=== PATIENT | female | born 1955 | race African-American/Black ===

== ENCOUNTER 2018-01-04 11:26 | Observation (INO) ==
[2018-01-04] MEDS ORDERED: Aspirin 325 MG Tablet PO ONE (11:58)
--- NOTE | 2018-01-04 12:32 | ED ---
HPI General Chief Complaint: Chest Pain Stated Complaint: left hand/arm pain,slight chest pressure Time Seen by Provider: 01/04/18 11:57 Source: patient Mode of arrival: ambulatory Limitations: no limitations History of Present Illness HPI narrative: Patient is a 62-year-old female that presents for the evaluation of chest heaviness and an abnormal sensation in the left arm that started yesterday. The patient states that the symptoms have fluctuated and are not constant. She experienced the symptoms for the first time yesterday and states that she felt better but the symptoms returned in the evening and were present again this morning so she decided she wanted further evaluation of the symptoms. The patient reports that she feels a heaviness in her chest that she states is not painful. She states that her left arm feels numb and she has experienced a sharp pain in her left hand. The patient states that she has a history of carpal tunnel in this arm but states that she is unsure if her current symptoms are similar to the carpal tunnel symptoms she experienced in the past. The patient also has a history of atrial fibrillation. Upon review of symptoms the patient denies fever, chills, palpitations, nausea, or vomiting. She denies any recent history of trauma to the neck or arm. She reports some shortness of breath upon exertion and bilateral lower extremity edema that she states is normal for her. Related Data Home Medications Medication Instructions Recorded Confirmed aspirin 81 mg PO DAILY 01/04/18 01/04/18 diltiazem HCl [Cartia XT] 180 mg PO DAILY 01/04/18 01/04/18 dronedarone [Multaq] 400 mg PO BID 01/04/18 01/04/18 rosuvastatin 10 mg PO DAILY 01/04/18 01/04/18 Allergies Allergy/AdvReac Type Severity Reaction Status Date / Time codeine Allergy Intermediate Nausea/Vomi Verified 01/04/18 16:26 ting banana Allergy Mild NAUSEA/BURING Verified 01/04/18 16:26 EARS Beef Containing Products Allergy Mild NAUSEA Verified 01/04/18 16:26 lactose Allergy Mild NAUSEA Verified 01/04/18 16:26 orange Allergy Mild NAUSEA Verified 01/04/18 16:26 Sulfa (Sulfonamide Allergy Mild RASH,HIVES Verified 01/04/18 16:26 Antibiotics) penicillin G Allergy Unknown Rash Verified 01/04/18 16:26 MELON AdvReac Severe NAUSEA Uncoded 02/22/10 09:15 Review of Systems ROS: all other systems reviewed are negative PMFSH History History Provided By: Patient Medical History Medical History Afib (Acute) Medial meniscus tear (Acute) Surgical History Surgical History Hx of appendectomy (Acute) Hx of tonsillectomy (Acute) Social History Social History Substance History: No History of Abuse Second Hand Smoke Exposure: No Smoking Status: Never smoker How Often Do You Have a Drink Containing Alcohol: Never Recent Travel in [facility] within the Last 8 Weeks: No Recent Out of Country Travel within the Last 8 Weeks: No Exam Narrative Exam Narrative: GENERAL: Well apeparing SKIN: Focused skin assessment warm/dry. HEAD: Atraumatic. Normocephalic. EYES: Pupils equal and round. No scleral icterus. No injection or drainage. ENT: No nasal bleeding or discharge. Mucous membranes pink and moist. Tongue is midline. No uvula deviation. NECK: Trachea midline. No JVD. CARDIOVASCULAR: Regular rate and rhythm. No murmur appreciated. RESPIRATORY: No accessory muscle use. Clear to auscultation. Breath sounds equal bilaterally. GASTROINTESTINAL: Abdomen soft, non-tender, nondistended. Hepatic and splenic margins not palpable. MUSCULOSKELETAL: No obvious deformities. No clubbing. No cyanosis. No edema. Full range of motion of the upper and lower extremities bilaterally. 2+ pulses bilaterally. NEUROLOGICAL: Awake and alert. No obvious cranial nerve deficits. Motor grossly within normal limits. Normal speech. PSYCHIATRIC: Appropriate mood and affect; insight and judgment normal. Course Initial Documented Vital Signs Temperature 97.6 F 01/04/18 11:46 Pulse Rate 63 01/04/18 11:46 Respiratory Rate 16 01/04/18 11:46 Blood Pressure 138/96 H 01/04/18 11:46 Pulse Oximetry 99 01/04/18 11:46 Last Documented Vital Signs Temperature 97.6 F 01/04/18 11:46 Pulse Rate 61 01/04/18 16:30 Respiratory Rate 18 01/04/18 16:30 Blood Pressure 137/60 01/04/18 16:30 Pulse Oximetry 100 01/04/18 16:30 Medical Decision Making EVELINE Attestation EVELINE supervised visit: Yes Attestation: I, Dr. Abdi, have reviewed the advance practice practitioner's documentation and am in agreement, met with the patient face to face, made the diagnosis, and the medical decision making was done by me. *My assessment and Findings: [-] Patient is 62-year-old female presented to emergency room for evaluation of chest pain. Patient was admitted for chest pain, I agree with mid-level evaluation and disposition. MDM Narrative Medical decision making narrative: 62-year-old female that presents to the ED for evaluation of chest pressure and left arm tingling sensation. Patient was properly examined and was found to have signs and symptoms very concerning for cardiac. Labs and imaging order. Patient was given aspirin here. Patient currently denies any chest pressure or pain. Labs and imaging were ordered. Labs and imaging were essentially unremarkable other than for the positive d- dimer. Ultrasound and CTA were negative. At this time patient does have chest pressure and shortness of breath but this appears to be more chronic for her. She does complain of some numbness and we are pain to her left arm which could be related to cardiac in nature. I spoke over the phone with Dr. Stevan Sabillon who recommends that the patient had a trend stress test. We gave the option to the patient to have it outpatient or inpatient. She prefers to do it inpatient. Per Dr. Castaneda she probably will do better with a nuclear stress test. Patient agrees to admission. Patient was admitted to the chest pain center by me. Medical Screen Exam Complete: Yes Emergency Medical Condition: Yes Differential Diagnosis Differential Diagnosis: Chest pain versus ACS versus PE versus a typical chest pain versus N STEMI versus atrial fibrillation Medical Records Medical records reviewed: Yes I reviewed the patient's medical records. Lab Data Lab results reviewed: Yes I reviewed the patient's lab results. Result diagrams: 01/04/18 12:45 01/04/18 12:45 Lab Results 01/04/18 01/04/18 01/04/18 Range/Units 12:45 12:45 12:45 WBC 5.4 (4.0-11.0) th/mm3 RBC 4.43 (4.00-5.30) mil/mm3 Hgb 12.4 (11.6-15.3) gm/dL Hct 38.6 (35.0-46.0) % MCV 87.3 (80.0-100.0) fL MCH 28.1 (27.0-34.0) pg MCHC 32.2 (32.0-36.0) % RDW 14.3 (11.6-17.2) % Plt Count 216 (150-450) th/mm3 MPV 7.2 (7.0-11.0) fL Neut % (Auto) 67.4 (16.0-70.0) % Lymph % (Auto) 22.6 (9.0-44.0) % Edgar % (Auto) 6.2 (0.0-8.0) % Eos % (Auto) 3.1 (0.0-4.0) % Baso % (Auto) 0.7 (0.0-2.0) % Neut # (Auto) 3.6 (1.8-7.7) th/mm3 Lymph # (Auto) 1.2 (1.0-4.8) th/mm3 Edgar # (Auto) 0.3 (0.0-0.9) th/mm3 Eos # (Auto) 0.2 (0.0-0.4) th/mm3 Baso # (Auto) 0.0 (0.0-0.2) th/mm3 WBC Differential . Differential Comment Auto diff final D-Dimer Quant (PE/DVT) 1.17 H (0.00-0.50) mg/L FEU Sodium 140 (136-145) meq/L Potassium 4.4 (3.5-5.1) meq/L Chloride 104 (98-107) meq/L Carbon Dioxide 28.2 (21.0-32.0) meq/L Anion Gap 8 (5-15) meq/L BUN 12 (7-18) mg/dL Creatinine 0.73 (0.50-1.00) mg/dL Estimated GFR Greater than 89 (>89) mL/min Random Glucose 61 L (74-106) mg/dL Calcium 9.0 (8.5-10.1) mg/dL Total Bilirubin 0.4 (0.2-1.0) mg/dL AST 13 L (15-37) U/L ALT 18 (10-53) U/L Alkaline Phosphatase 92 (45-117) U/L Total Creatine Kinase 155 (26-192) U/L CK-MB (CK-2) 1.2 (0.5-3.6) ng/mL Troponin I Less than 0.02 L (0.02-0.05) ng/mL Total Protein 8.3 H (6.4-8.2) g/dL Albumin 3.5 (3.4-5.0) g/dL 01/04/18 Range/Units 17:15 WBC (4.0-11.0) th/mm3 RBC (4.00-5.30) mil/mm3 Hgb (11.6-15.3) gm/dL Hct (35.0-46.0) % MCV (80.0-100.0) fL MCH (27.0-34.0) pg MCHC (32.0-36.0) % RDW (11.6-17.2) % Plt Count (150-450) th/mm3 MPV (7.0-11.0) fL Neut % (Auto) (16.0-70.0) % Lymph % (Auto) (9.0-44.0) % Edgar % (Auto) (0.0-8.0) % Eos % (Auto) (0.0-4.0) % Baso % (Auto) (0.0-2.0) % Neut # (Auto) (1.8-7.7) th/mm3 Lymph # (Auto) (1.0-4.8) th/mm3 Edgar # (Auto) (0.0-0.9) th/mm3 Eos # (Auto) (0.0-0.4) th/mm3 Baso # (Auto) (0.0-0.2) th/mm3 WBC Differential Differential Comment D-Dimer Quant (PE/DVT) (0.00-0.50) mg/L FEU Sodium (136-145) meq/L Potassium (3.5-5.1) meq/L Chloride (98-107) meq/L Carbon Dioxide (21.0-32.0) meq/L Anion Gap (5-15) meq/L BUN (7-18) mg/dL Creatinine (0.50-1.00) mg/dL Estimated GFR (>89) mL/min Random Glucose (74-106) mg/dL Calcium (8.5-10.1) mg/dL Total Bilirubin (0.2-1.0) mg/dL AST (15-37) U/L ALT (10-53) U/L Alkaline Phosphatase (45-117) U/L Total Creatine Kinase 146 (26-192) U/L CK-MB (CK-2) Less than 1.0 (0.5-3.6) ng/mL Troponin I Less than 0.02 L (0.02-0.05) ng/mL Total Protein (6.4-8.2) g/dL Albumin (3.4-5.0) g/dL Imaging Data Attestation: I personally reviewed and interpreted this imaging study as follows : Radiologist's impression: Chest X-Ray 01/04/18 11:59 CONCLUSION: No acute cardiopulmonary disease. Venous Doppler Study 01/04/18 13:31 CONCLUSION: 1. Negative exam with no evidence of deep venous thrombosis. Chest CTA 01/04/18 13:43 CONCLUSION: 1. No evidence of pulmonary embolism. 2. Lungs are clear with no confluent infiltrates. ECG Data Attestation: I personally reviewed and interpreted this ECG as follows: Interpretation: EKG shows sinus rhythm with no sign of acute ischemia and arrhythmia read by me and attending. Discharge Plan Discharge Disposition Patient Disposition: 30 Still Patient Discharge Details Diagnosis: Chest pain Physicians Team ED Provider: Brian Abdi ED Midlevel Provider: Damon Marks Primary Care Provider: Nat Ryan Attending Provider: Torie Almodovar ED Status: Left Department Discharge Information Discharge Date/Time: 01/04/18 17:40
--- NOTE | 2018-01-04 12:42 | XR ---
EXAM DATE: 01/04/2018 11:59 AM EDT AGE/SEX: 62 years / Female INDICATIONS: Left arm and chest pain. CLINICAL DATA: This is the patient's initial encounter. Patient reports that signs and symptoms have been present for 2 days and indicates a pain score of 3/10. MEDICAL/SURGICAL HISTORY: None. None. COMPARISON: [facility] [place], CHEST SINGLE AP, 04/04/2015. . FINDINGS: A single AP view of the chest demonstrates the lungs to be symmetrically aerated without evidence of mass, infiltrate or effusion. The cardiomediastinal contours are unremarkable. Osseous structures a re intact. CONCLUSION: No acute cardiopulmonary disease. Electronically signed by: Chris Schwartz MD 01/04/2018 12:41 PM EDT
[2018-01-04 13:20] LABS: Baso % (Auto) 0.7 % (0.0-2.0); Eos # (Auto) 0.2 th/mm3 (0.0-0.4); Eos % (Auto) 3.1 % (0.0-4.0); Hematocrit 38.6 % (35.0-46.0); Hemoglobin 12.4 gm/dL (11.6-15.3); Lymph # (Auto) 1.2 th/mm3 (1.0-4.8); Lymph % (Auto) 22.6 % (9.0-44.0); Mean Corpuscular HGB Conc 32.2 % (32.0-36.0); Mean Corpuscular Hemoglobin 28.1 pg (27.0-34.0); Mean Corpuscular Volume 87.3 fL (80.0-100.0); Mean Platelet Volume 7.2 fL (7.0-11.0); Mono # (Auto) 0.3 th/mm3 (0.0-0.9); Mono % (Auto) 6.2 % (0.0-8.0); Neut # (Auto) 3.6 th/mm3 (1.8-7.7); Neut % (Auto) 67.4 % (16.0-70.0); Platelet Count 216 th/mm3 (150-450); Red Blood Count 4.43 mil/mm3 (4.00-5.30); Red Cell Distribution Width 14.3 % (11.6-17.2); White Blood Count 5.4 th/mm3 (4.0-11.0)
[2018-01-04 13:36] LABS: Albumin 3.5 g/dL (3.4-5.0); Anion Gap 8 meq/L (5-15); Aspartate Aminotransferase 13 U/L (15-37); Blood Urea Nitrogen 12 mg/dL (7-18); Carbon Dioxide 28.2 meq/L (21.0-32.0); Chloride 104 meq/L (98-107); Glomerular Filtration Rate Greater Than 89 mL/min (>89); Glucose,Random 61 mg/dL (74-106); Potassium 4.4 meq/L (3.5-5.1); Sodium 140 meq/L (136-145)
[2018-01-04 13:37] LABS: Alanine Aminotransferase 18 U/L (10-53)
[2018-01-04 13:40] LABS: Alkaline Phosphatase 92 U/L (45-117); Creatine Kinase 155 U/L (26-192); Total Protein 8.3 g/dL (6.4-8.2)
[2018-01-04 13:53] LABS: Creatine Kinase MB 1.2 ng/mL (0.5-3.6)
--- NOTE | 2018-01-04 14:57 | US ---
EXAM DATE: 01/04/2018 1:31 PM EDT AGE/SEX: 62 years / Female INDICATIONS: Left arm edema. CLINICAL DATA: This is the patient's initial encounter. Patient reports that signs and symptoms have been present for 2 days and indicates a pain score of 2/10. MEDICAL/SURGICAL HISTORY: . Afib. Medial meniscus tear. Appendectomy. Tonsillectomy. COMPARISON: No prior exams available for comparison. FINDINGS: The vessels are compressible and augmentation response is documented. No filling defects a re seen. The flow is phasic with respiration. Other: None. CONCLUSION: 1. Negative exam with no evidence of deep venous thrombosis. Electronically signed by: Chris Schwartz MD 01/04/2018 2:56 PM EDT
--- NOTE | 2018-01-04 15:21 | CT ---
EXAM DATE: 01/04/2018 2:24 PM EDT AGE/SEX: 62 years / Female INDICATIONS: Chest tightness radiating down left arm CLINICAL DATA: This is the patient's initial encounter. Patient reports that signs and symptoms have been present for 2 days and indicates a pain score of 6/10. MEDICAL/SURGICAL HISTORY: . A-fib Appendectomy. Tonsillectomy. RADIATION DOSE: 10.82 CTDI (mGy) COMPARISON: [facility], CT CHEST W AND W/O CONTRAST, 11/24/2016. . TECHNIQUE: Volumetric scanning was performed using a multi-row detector CT scanner during bolus infu rodney of 70 ml Omnipaque 350 (iohexol) nonionic water-soluble contrast as a single exam dose. The edinson a was post processed with a variety of visualization algorithms including full volume maximum intensi ty projection and sliding thin slab reformation. Using automated exposure control and adjustment of t he mA and/or kV according to patient size, radiation dose was kept as low as reasonably achievable to obtain optimal diagnostic quality images. DICOM format image data is available electronically for r eview and comparison. FINDINGS: Pulmonary Arteries: No filling defects are seen in the pulmonary arteries out to the subsegmental ve ssels. There is mild scarring. The left and right pulmonary arteries are normal in diameter. Lung: No infiltrates seen. Effusion: None. Mediastinum: No evidence of mediastinal or hilar adenopathy. Other: The axilla is unremarkable. CONCLUSION: 1. No evidence of pulmonary embolism. 2. Lungs are clear with no confluent infiltrates. Electronically signed by: Chris Schwartz MD 01/04/2018 3:20 PM EDT
[2018-01-04] MEDS ORDERED: ALPRAZolam 0.25 MG Tablet PO PRN (16:31)
--- NOTE | 2018-01-04 16:43 | P.HPCA ---
History of Present Illness Primary Care Physician: Nat Ryan MD Chief Complaint: Left arm pain and chest heaviness History of Present Illness: This is a 62-year-old female that presents to ED with history of paroxysmal atrial fibrillation with complaint of developing a left arm pain and tingling last evening. Last about an hour until she falls asleep but then she wake up and it would still be there. Continue that way throughout the night. And she woke up this morning it was still there. States the discomfort today was not as intense as it was last evening but remained throughout the day. She also developed a couple episodes of left-sided chest heaviness that lasted maybe 20 minutes over the evening. Maybe a little shortness of breath. No nausea or diaphoresis. States his symptoms do not feel similar to when she is to go into atrial fibrillation. Denies any known coronary disease and upon reviewing records she had a heart catheterization in [address] Castaneda that revealed no significant disease. States she still follows Dr. Castaneda and last saw him about a month ago. Physician budget assistant Gil Marks spoke with her tub rider , her tub rider recommended Lexiscan in the morning and states that she had a nonischemic Lexiscan August 2016. - Diagnosis (1) Chest pain (2) Paroxysmal atrial fibrillation Review of Systems General: Patient denies fevers, chills, and recent travel. HEENT: Patient denies headache, sore throat, difficulty swallowing. Cardiovascular: Has the chest discomfort as mentioned above. Denies sensation of heart beating rapidly or irregularly. No syncope. Denies diaphoresis. Respiratory: Mild shortness of breath. Denies inspirational chest discomfort. Denies coughing wheezing or hemoptysis. GI: Patient denies nausea, vomiting, diarrhea, abdominal pain, bloody stools. Musculoskeletal: Left arm pain. Patient denies joint pain or edema. Denies calf pain or edema. Neurovascular: Complaint of numbness tingling in left arm. Patient denies weakness in extremities. Denies headache. Endocrine: Denies polyuria and polydipsia. Hematologic: Denies easy bruising. Skin: Denies rash or itching. PMFSH - History History Provided By: Patient - Medical History Medical History: Medical History (Last Reviewed 01/04/18 @ 12:31 by FAUSTINA Watson) Afib Medial meniscus tear - Surgical History Surgical History: Surgical History (Last Reviewed 01/04/18 @ 12:31 by FAUSTINA Watson) Hx of appendectomy Hx of tonsillectomy - Tobacco History Second Hand Smoke Exposure: No Tobacco Use In Past 30 Days: No Smoking Status: Never smoker - Alcohol History How Often Do You Have a Drink Containing Alcohol: Never - Substance Use History Substance History: No History of Abuse - Travel History Recent Travel in the [place] Within the Last 8 Weeks: No Recent Travel Out of the Country Within the Last 8 Weeks: No - Immunization History Tetanus Immunization: Unsure Hx Influenza Vaccine This Season: Yes Medications and Allergies Active Medications: Active Medications Alprazolam (Xanax) 0.25 mg PO Q8H PRN PRN Reason: ANXIETY Aspirin (Aspirin) 325 mg PO DAILY MAIDA Dronedarone (Multaq) 400 mg PO BID MAIDA Pantoprazole Sodium (Protonix) 40 mg PO DAILY MAIDA Sodium Chloride (Ns Flush) 2 ml IV.FLUSH BID MAIDA Sodium Chloride (Ns Flush) 2 ml IV.FLUSH PRN PRN PRN Reason: FLUSH AFTER USING IV ACCESS Allergies Allergy/AdvReac Type Severity Reaction Status Date / Time codeine Allergy Intermediate Nausea/Vomi Verified 01/04/18 16:26 ting banana Allergy Mild NAUSEA/BURING Verified 01/04/18 16:26 EARS Beef Containing Products Allergy Mild NAUSEA Verified 01/04/18 16:26 lactose Allergy Mild NAUSEA Verified 01/04/18 16:26 orange Allergy Mild NAUSEA Verified 01/04/18 16:26 Sulfa (Sulfonamide Allergy Mild RASH,HIVES Verified 01/04/18 16:26 Antibiotics) penicillin G Allergy Unknown Rash Verified 01/04/18 16:26 MELON AdvReac Severe NAUSEA Uncoded 05/27/09 09:15 Home Medications Medication Instructions Recorded Confirmed Type aspirin 81 mg PO DAILY 01/04/18 01/04/18 History diltiazem HCl [Cartia XT] 180 mg PO DAILY 01/04/18 01/04/18 History dronedarone [Multaq] 400 mg PO BID 01/04/18 01/04/18 History Exam Vital signs: Vital Signs 01/04/18 11:46 01/04/18 11:55 01/04/18 12:30 Temperature 97.6 F Pulse Rate 63 54 L Respiratory Rate 16 16 Blood Pressure 138/96 H 144/70 H Pulse Oximetry 99 100 100 10/02/18 13:30 Temperature Pulse Rate 67 Respiratory Rate 18 Blood Pressure 144/78 H Pulse Oximetry 100 Intake & Output 01/03/18 01/04/18 01/04/18 18:59 06:59 18:59 Weight 107.048 kg Narrative: GENERAL: This is a well-nourished, well-developed patient, in no apparent distress. Patient speaks in clear complete sentences. Patient is pleasant. HEENT: Head is atraumatic and normocephalic. Neck is supple without lymphadenopathy and trachea is midline. No JVD or carotid bruits. CARDIOVASCULAR: Regular rate and rhythm without murmurs, gallops, or rubs. RESPIRATORY: Clear to auscultation. Breath sounds equal bilaterally. No wheezes , rales, or rhonchi. Chest wall is nontender. No use of accessory muscles. GASTROINTESTINAL: Abdomen is nontender, nondistended. Abdomen soft. No obvious pulsatile mass or bruit. No CVA tenderness. Strong femoral pulses bilaterally. Normal bowel sounds in all quadrants. MUSCULOSKELETAL: Patient is moving upper and lower extremities freely. No calf tenderness or edema, no Homans sign. Strong pulses in upper and lower extremities. NEUROLOGICAL: Patient is alert and oriented. Cranial nerves 2-12 are grossly intact. No focal deficits and speech is clear. SKIN: No rash and turgor is normal. Results 01/04/18 12:45 01/04/18 12:45 Cardiac Enzymes 01/04/18 Range/Units 12:45 AST 13 L (15-37) U/L CK-MB (CK-2) 1.2 (0.5-3.6) ng/mL Troponin I Less than 0.02 L (0.02-0.05) ng/mL CBC 01/04/18 Range/Units 12:45 WBC 5.4 (4.0-11.0) th/mm3 RBC 4.43 (4.00-5.30) mil/mm3 Hgb 12.4 (11.6-15.3) gm/dL Hct 38.6 (35.0-46.0) % Plt Count 216 (150-450) th/mm3 Neut # (Auto) 3.6 (1.8-7.7) th/mm3 Lymph # (Auto) 1.2 (1.0-4.8) th/mm3 Dickson # (Auto) 0.3 (0.0-0.9) th/mm3 Eos # (Auto) 0.2 (0.0-0.4) th/mm3 Baso # (Auto) 0.0 (0.0-0.2) th/mm3 Comprehensive Metabolic Panel 01/04/18 Range/Units 12:45 Sodium 140 (136-145) meq/L Potassium 4.4 (3.5-5.1) meq/L Chloride 104 (98-107) meq/L Carbon Dioxide 28.2 (21.0-32.0) meq/L BUN 12 (7-18) mg/dL Creatinine 0.73 (0.50-1.00) mg/dL Calcium 9.0 (8.5-10.1) mg/dL AST 13 L (15-37) U/L ALT 18 (10-53) U/L Alkaline Phosphatase 92 (45-117) U/L Total Protein 8.3 H (6.4-8.2) g/dL Albumin 3.5 (3.4-5.0) g/dL Intake and Output 01/04/18 01/04/18 01/04/18 06:59 14:59 22:59 Other: Weight 107.048 kg Patient Weight 01/05/18 06:59 Weight 107.048 kg - Imaging and Cardiology Imaging: Impressions Chest X-Ray 01/04/18 11:59 CONCLUSION: No acute cardiopulmonary disease. Venous Doppler Study 01/04/18 13:31 CONCLUSION: 1. Negative exam with no evidence of deep venous thrombosis. Chest CTA 01/04/18 13:43 CONCLUSION: 1. No evidence of pulmonary embolism. 2. Lungs are clear with no confluent infiltrates. EKG interpretations - EKG EKG shows: bradycardia (Initial EKG sinus bradycardia rate of [address]-T changes.) Caprini VTE Risk Assessment Caprini VTE Risk Assessment: Moderate/High Risk (score >= 2) Caprini Risk Assessment Model: Point Value = 1 Point Value = 2 Point Value = 3 Point Value = 5 Age 41-60 Minor surgery BMI > 25 kg/m2 Swollen legs Varicose veins or History of unexplained or recurrent spontaneous Oral contraceptives or hormone replacement Sepsis (< 1 month) Serious lung disease, including pneumonia (< 1 month) Abnormal pulmonary function Acute myocardial infarction Congestive heart failure (< 1 month) History of inflammatory bowel disease Medical patient at bed rest Age 61-74 Arthroscopic surgery Major open surgery (> 45 min) Laparoscopic surgery (> 45 min) Malignancy Confined to bed (> 72 hours) Immobilizing plaster cast Central venous access Age >= 75 History of VTE Family history of VTE Factor V Leiden Prothrombin [id number] Lupus anticoagulant Anticardiolipin antibodies Elevated serum homocysteine Heparin-induced thrombocytopenia Other congenital or acquired thrombophilia Stroke (< 1 month) Elective arthroplasty Hip, pelvis, or leg fracture Acute spinal cord injury (< 1 month) Prophylaxis Regimen: Total Risk Factor Score Risk Level Prophylaxis Regimen 0-1 Low Early ambulation 2 Moderate Order ONE of the following: *Sequential Compression Device (SCD) *Heparin 5000 units SQ BID 3-4 Higher Order ONE of the following medications: *Heparin 5000 units SQ TID *Enoxaparin/Lovenox 40 mg SQ daily (WT < 150 kg, CrCl > 30 mL/min) *Enoxaparin/Lovenox 30 mg SQ daily (WT < 150 kg, CrCl > 10-29 mL/min) *Enoxaparin/Lovenox 30 mg SQ BID (WT < 150 kg, CrCl > 30 mL/min) AND/OR *Sequential Compression Device (SCD) 5 or more Highest Order ONE of the following medications: *Heparin 5000 units SQ TID (Preferred with Epidurals) *Enoxaparin/Lovenox 40 mg SQ daily (WT < 150 kg, CrCl > 30 mL/min) *Enoxaparin/Lovenox 30 mg SQ daily (WT < 150 kg, CrCl > 10-29 mL/min) *Enoxaparin/Lovenox 30 mg SQ BID (WT < 150 kg, CrCl > 30 mL/min) AND *Sequential Compression Device (SCD) Assessment and Plan - Assessment (1) Chest pain Code(s): R07.9 - Chest pain, unspecified Status: Acute (2) Paroxysmal atrial fibrillation Code(s): I48.0 - Paroxysmal atrial fibrillation Status: Acute - Plan * Chest pain: Patient will have serial cardiac enzymes and EKGs for ruling out purposes. She has been seen by Dr. Almodovar of cardiology in the chest pain center. ER PA spoke with her tub rider who recommended Lexiscan in the morning if she rules out. So she will have a Lexiscan in the morning if she does rule out. She will be discharged home if stress test is nonischemic with instructions to follow-up with PCP and cardiology. Her tub rider will be notified if her stress test is ischemic. Otherwise return to ED for interval issues. * History of paroxysmal atrial relation: She has been in sinus rhythm while in the ED. We will continue to monitor overnight. Continue medications and follow -up with her tub rider. Patient is stable at this time. She is agreeable to this plan. (1) Chest pain Qualifiers: Chest pain type: unspecified Qualified Code(s): R07.9 - Chest pain, unspecified
[2018-01-04] MEDS ORDERED: Acetaminophen 500 MG Tablet PO PRN (16:57)
[2018-01-04 18:04] LABS: Creatine Kinase 146 U/L (26-192)
[2018-01-04 21:24] LABS: Creatine Kinase 155 U/L (26-192)
--- NOTE | 2018-01-04 22:22 | ECG ---
Date Performed: 01/04/2018 Time Performed: 12:30:53 PTAGE: 62 years EKG: SINUS BRADYCARDIA WITH FIRST DEGREE AV BLOCK BORDERLINE LEFT AXIS DEVIATION ABNORMAL ECG PREVIOUS TRACING : 12/27/2015 08.53 Since the previous tracing, no significant change noted DOCTOR: Katarina Diana Interpretating Date/Time 01/04/2018 22:19:48
[2018-01-05] MEDS ORDERED: Aspirin 325 MG Tablet PO SCH (09:00)
[2018-01-05] MEDS ORDERED: dilTIAZem CD 180 MG Capsule PO SCH (09:00)
--- NOTE | 2018-01-05 09:15 | P.PNCA ---
Medications and Allergies Active Medications: Active Medications Acetaminophen (Tylenol) 500 mg PO Q6H PRN PRN Reason: pain scale 1-5 Albuterol (Duoneb Neb (Prn)) 1 ampul NEB Q4HR NEB PRN PRN Reason: SHORTNESS OF BREATH/WHEEZING Alprazolam (Xanax) 0.25 mg PO Q8H PRN PRN Reason: ANXIETY Aspirin (Aspirin) 325 mg PO DAILY [facility] Clonidine HCl (Catapres) 0.1 mg PO Q6H PRN PRN Reason: SBP >165 OR DBP > 110 Diltiazem HCl (Cardizem Cd 24hr) 180 mg PO DAILY [facility] Dronedarone (Multaq) 400 mg PO BIDWM [facility] Ondansetron HCl (Zofran Inj) 4 mg IV.PUSH Q6H PRN PRN Reason: NAUSEA OR VOMITING Pantoprazole Sodium (Protonix) 40 mg PO DAILY [facility] Last Admin: 01/04/18 18:42 Dose: 40 mg Sodium Chloride (Ns Flush) 2 ml IV.FLUSH BID [facility] Last Admin: 01/04/18 21:00 Dose: 2 ml Sodium Chloride (Ns Flush) 2 ml IV.FLUSH PRN PRN PRN Reason: FLUSH AFTER USING IV ACCESS Allergies Allergy/AdvReac Type Severity Reaction Status Date / Time codeine Allergy Intermediate Nausea/Vomi Verified 01/04/18 16:26 ting banana Allergy Mild NAUSEA/BURING Verified 01/04/18 16:26 EARS Beef Containing Products Allergy Mild NAUSEA Verified 01/04/18 16:26 lactose Allergy Mild NAUSEA Verified 01/04/18 16:26 orange Allergy Mild NAUSEA Verified 01/04/18 16:26 Sulfa (Sulfonamide Allergy Mild RASH,HIVES Verified 01/04/18 16:26 Antibiotics) penicillin G Allergy Unknown Rash Verified 01/04/18 16:26 MELON AdvReac Severe NAUSEA Uncoded 05/27/09 09:15 Home Medications Medication Instructions Recorded Confirmed Type aspirin 81 mg PO DAILY 01/04/18 01/04/18 History diltiazem HCl [Cartia XT] 180 mg PO DAILY 01/04/18 01/04/18 History dronedarone [Multaq] 400 mg PO BID 01/04/18 01/04/18 History rosuvastatin 10 mg PO DAILY 01/04/18 01/04/18 History Physical Exam Vital signs: Vital Signs 01/04/18 11:46 01/04/18 11:55 01/04/18 11:59 Temperature 97.6 F Pulse Rate 63 Respiratory Rate 16 Blood Pressure 138/96 H Pulse Oximetry 99 100 100 01/04/18 12:30 01/04/18 13:30 01/04/18 15:30 Temperature Pulse Rate 54 L 67 66 Respiratory Rate 16 18 Blood Pressure 144/70 H 144/78 H 140/70 Pulse Oximetry 100 100 100 01/04/18 16:30 01/04/18 20:00 01/05/18 00:00 Temperature 97.5 F L Pulse Rate 61 62 73 Respiratory Rate 18 16 Blood Pressure 137/60 133/62 Pulse Oximetry 100 100 98 01/05/18 04:00 01/05/18 07:51 Temperature 97.9 F 97.5 F L Pulse Rate 71 67 Respiratory Rate 18 16 Blood Pressure 136/63 143/70 H Pulse Oximetry 97 99 Intake & Output 01/04/18 01/05/18 01/05/18 18:59 06:59 18:59 Weight 107.048 kg 107.048 kg Other: # Voids 3 Date of Last Bowel Movement 01/04/18 - Constitutional no acute distress - Routine HEENT Exam Head: Present: normocephalic, atraumatic - Routine Respiratory Exam Present: CTA bilaterally - Routine Cardiovascular Exam Present: RRR. Absent: murmur, gallop Results 01/04/18 12:45 01/04/18 12:45 Cardiac Enzymes 01/04/18 01/04/18 01/04/18 Range/Units 12:45 12:45 17:15 AST 13 L (15-37) U/L CK-MB (CK-2) 1.2 Less than 1.0 (0.5-3.6) ng/mL Troponin I Less than 0.02 L Less than 0.02 L (0.02-0.05) ng/mL B-Natriuretic Peptide 164 H (0-100) pg/mL 01/04/18 01/05/18 Range/Units 20:18 03:35 AST (15-37) U/L CK-MB (CK-2) (0.5-3.6) ng/mL Troponin I Less than 0.02 L Less than 0.02 L (0.02-0.05) ng/mL B-Natriuretic Peptide (0-100) pg/mL Coagulation 01/04/18 Range/Units 12:45 B-Natriuretic Peptide 164 H (0-100) pg/mL CBC 01/04/18 Range/Units 12:45 WBC 5.4 (4.0-11.0) th/mm3 RBC 4.43 (4.00-5.30) mil/mm3 Hgb 12.4 (11.6-15.3) gm/dL Hct 38.6 (35.0-46.0) % Plt Count 216 (150-450) th/mm3 Neut # (Auto) 3.6 (1.8-7.7) th/mm3 Lymph # (Auto) 1.2 (1.0-4.8) th/mm3 [place] # (Auto) 0.3 (0.0-0.9) th/mm3 Eos # (Auto) 0.2 (0.0-0.4) th/mm3 Baso # (Auto) 0.0 (0.0-0.2) th/mm3 Comprehensive Metabolic Panel 01/04/18 Range/Units 12:45 Sodium 140 (136-145) meq/L Potassium 4.4 (3.5-5.1) meq/L Chloride 104 (98-107) meq/L Carbon Dioxide 28.2 (21.0-32.0) meq/L BUN 12 (7-18) mg/dL Creatinine 0.73 (0.50-1.00) mg/dL Calcium 9.0 (8.5-10.1) mg/dL AST 13 L (15-37) U/L ALT 18 (10-53) U/L Alkaline Phosphatase 92 (45-117) U/L Total Protein 8.3 H (6.4-8.2) g/dL Albumin 3.5 (3.4-5.0) g/dL Intake and Output 01/04/18 01/05/18 01/05/18 22:59 06:59 14:59 Other: # Voids 3 Date of Last Bowel Movement 01/04/18 Weight 107.048 kg - Imaging and Cardiology Imaging: Impressions Chest X-Ray 01/04/18 11:59 CONCLUSION: No acute cardiopulmonary disease. Venous Doppler Study 01/04/18 13:31 CONCLUSION: 1. Negative exam with no evidence of deep venous thrombosis. Chest CTA 01/04/18 13:43 CONCLUSION: 1. No evidence of pulmonary embolism. 2. Lungs are clear with no confluent infiltrates. Assessment and Plan - Assessment (1) Chest pain Code(s): R07.9 - Chest pain, unspecified Status: Acute Plan: Admitted chest pain center. ACS ruled out with 3 sets of EKGs and cardiac enzymes. Previously seen and evaluated by Dr. Torie Almodovar. Proceed with plan Lexiscan this morning. If unremarkable, plans are to discharge home with follow-up with primary care provider. Verbalized understanding and agreeable to plan of care. (2) Paroxysmal atrial fibrillation Code(s): I48.0 - Paroxysmal atrial fibrillation Status: Acute - Plan * Chest pain: Patient will have serial cardiac enzymes and EKGs for ruling out purposes. She has been seen by Dr. Almodovar of cardiology in the chest pain center. ER PA spoke with her administrative tech who recommended Lexiscan in the morning if she rules out. So she will have a Lexiscan in the morning if she does rule out. She will be discharged home if stress test is nonischemic with instructions to follow-up with PCP and cardiology. Her administrative tech will be notified if her stress test is ischemic. Otherwise return to ED for interval issues. * History of paroxysmal atrial relation: She has been in sinus rhythm while in the ED. We will continue to monitor overnight. Continue medications and follow -up with her administrative tech. Patient is stable at this time. She is agreeable to this plan. (1) Chest pain Qualifiers: Chest pain type: unspecified Qualified Code(s): R07.9 - Chest pain, unspecified
[2018-01-05] MEDS ORDERED: Regadenoson Inj 0.4 MG/5 ML Syringe IV.PUSH ONE (09:47)
--- NOTE | 2018-01-05 11:18 | NM ---
EXAM DATE: 01/05/2018 9:19 AM EDT AGE/SEX: 62 years / Female INDICATIONS:Angina. . Paroxysmal atrial fibrillation with complaint of developing a left arm pain. Le ft sided chest heaviness. CLINICAL DATA: This is the patient's initial encounter. Patient reports that signs and symptoms have been present for 1 day and indicates a pain score of 1/10. MEDICAL/SURGICAL HISTORY: . A-fib and history of medial meniscus tear. Appendectomy. Tonsille ctomy. COMPARISON: No prior exams available for comparison. DOSE: 8.8 mCi Tc 99m Myoview at rest 26.6 mCi [id number] at stress 0.4 mg Lexiscan STRESS SYMPTOMS: Head pressure and chest tightness. EJECTION FRACTION: 54 % TECHNIQUE: The patient underwent pharmacologic stress with infusion of prescribed dose. Continuous ECG tracing was monitored during stress. Gated SPECT imaging was performed after stress and conventi onal SPECT imaging was performed at rest. The examination was performed on a SPECT/CT scanner, both attenuation and non-corrected datasets were reviewed. FINDINGS: Distribution: The maximum perfused segment at stress is in the inferior wall. Perfusion Study: The pattern of perfusion at stress is within normal limits. Gated Study: There are intact wall motion and wall thickening without hypokinetic or dyskinetic segm ents. The ejection fraction is calculated at 54%. RISK CATEGORY: Low (<1% Annual Motality Rate) CONCLUSION: 1. Negative examination. Electronically signed by: Sunny Moy MD 01/05/2018 11:16 AM EDT
[2018-01-05 11:48] VITALS: BP 150/80; PULSE 73; RESP 20; TEMP 97.4; O2SAT 95
--- NOTE | 2018-01-05 14:52 | ECG ---
Date Performed: 01/04/2018 Time Performed: 18:35:33 PTAGE: 62 years EKG: Sinus rhythm WITH FIRST DEGREE AV BLOCK PROLONGED QT INTERVAL ABNORMAL ECG INTERPRETATION BASED ON A DEFAULT AGE OF 40 YEARS PREVIOUS TRACING : 01/04/2018 17.25 Since previous tracing, no significant change noted DOCTOR: Jassi Aguilar Interpretating Date/Time 01/05/2018 14:52:13
--- NOTE | 2018-01-05 14:53 | ECG ---
Date Performed: 01/04/2018 Time Performed: 17:25:51 PTAGE: 62 years EKG: Sinus rhythm WITH FIRST DEGREE AV BLOCK BORDERLINE LEFT AXIS DEVIATION MODERATE INTRAVENTRICULAR CONDUCTION DELAY PROLONGED QT INTERVAL ABNORMAL ECG PREVIOUS TRACING : 01/04/2018 12.30 Since previous tracing, no significant change noted DOCTOR: Jassi Aguilar Interpretating Date/Time 01/05/2018 14:52:29
--- NOTE | 2018-01-05 14:58 | TR ---
Date Performed: 01/05/2018 Time Performed: 10:14:25 DOCTOR: Jassi Aguilar DRUG LIST: CLINICAL HISTORY: REASON FOR TEST: CHEST PAIN REASON FOR ENDING: OBSERVATION: CONCLUSION: COMMENTS: Lexiscan stress test was performed under standard four minute protocol. Radionuclide was injected one minute prior to ending the test. No electrocardiographic abormalities were present t o suggest ischemia. Nuclear imaging and interpretation are pending.
== END 2018-01-05 15:38 | disposition home or self-care (01) ==
LOC: NEPC 11:26 → NEDA 11:26 → NEPHCDU 17:36
PROVIDERS: ADMIT Internal Medicine Interventional Cardiology; ATTEND Internal Medicine Interventional Cardiology